=== PATIENT | female | born 1950 | race Caucasian/White ===

== ENCOUNTER 2020-04-09 07:57 | Emergency (ER) | payer MEDICARE, OTHER ==
[~2020-04-09] VITALS: Ht 172.7 cm; Wt 81.7 kg
--- OUTSIDE RECORDS SUMMARY | ~2020-04-09 | XMS | Encounter Summary ---
Demographics + + + | Address | [address] | | | [place] [address] | + + + | Home Phone | | + + + | Preferred Language | Unknown | + + + | Marital Status | | + + + | Scientologist Affiliation | Unknown | + + + | Race | White | + + + | Ethnic Group | Not or | + + + Author + + + | Author | [facility] | + + + | Organization | [facility] | + + + | Address | Unknown | + + + | Phone | Unavailable | + + + Support + + +---------+ + | Name | Relationship | Address | Phone | + + +---------+ + | Joe Rhodes | ECON | Unknown | | + + +---------+ + Care Team Providers + +------+ + | Care Lead Tank Mechanic Name | Role | Phone | + +------+ + PCP | Unavailable | + +------+ + Encounter Details +--------+ + + + + | Date | Type | Department | Care Team | Description | +--------+ + + + + | 09/15/ | Office | [facility] | Note, Dermatology | Progress Note | | 2005 | Visit-Trans | | Clinic | | | | cribed | | | | +--------+ + + + + Social History + +-------+ +--------+------+ | Tobacco [...] recent travel history available. | + + documented as of this encounter Progress Notes Interface, Surface Mount Technology Operator In - 04/04/2005 1:10 AM [facility] [id number] 09/15/2004 09/15/2004 [id number] RIGO ROSARIO DATE OF SERVICE: 09/15/2004 SURGEON: Fausto Chang M.D. VAN LOADER: Franck Ward M.D. RESIDENT: Pratik Parnell M.D. INDICATIONS: The patient was left with a 1.5 x 1.2 cm defect involving the left nose sidewall following Mohs surgery for removal of a primary basal cell carcinoma. Various closure modalities were discussed with the patient, and it was decided that an advancement flap would best preserve normal anatomical and functional relationships. After a discussion of the risks of bleeding, scarring, infection, and wound dehiscense, written and verbal consent was obtained, and the patient underwent the procedure as follows. PROCEDURE: The patient was taken to the operative suite and placed supine on the operating room table. The area was anesthetized with 1% lidocaine with epinephrine. The area was washed with Hibiclens, rinsed with saline, and draped with sterile towels. An advancement flap was designed with incisions made superiorly and laterally. The flap was widely undermined, and hemostasis was obtained with spot electrodessication. The flap was advanced to close the primary defect and sutured using fascia and 5-0 polysorb sutures. The secondary defect was modified by tissue rearrangement removing Isidro's triangles. Once aligned, the dermis was carefully closed using 5-0 polysorb dermal sutures. The epidermis was carefully approximated throughout the length of the wound with 5-0 novafil and fast absorbing gut sutures. The final wound length was 3.0 x 2.0cm. A sterile pressure dressing was applied, and wound care instructions were given. FINAL DIAGNOSIS: Primary basal cell carcinoma of the left nose sidewall. FINAL PROCEDURE: Advancement flap. COMPLICATIONS: None. ___ _ Costa Wise M.D. Professor and Chair, Dermatology Fellow, Dermatology Pratik Parnell M.D. Resident, Dermatology Pursuant to federal Medicare billing regulations, I certify that I was present, at a minimum, during the hale components of the procedure: identify type of reconstruction, area of primary and secondary tissue movement, design of flap, location of hale stitch, and review of final result. SIMON/flor A documented i n this encounter Plan of Treatment Not on filedocumented as of this encounter Visit Diagnoses Not on filedocumented in this encounter"
--- OUTSIDE RECORDS SUMMARY | ~2020-04-09 | XMS | Encounter Summary ---
Demographics + + + | Address | [address] | | | [place] [address] | + + + | Home Phone | | + + + | Preferred Language | Unknown | + + + | Marital Status | | + + + | Samaritan Affiliation | Unknown | + + + | Race | White | + + + | Ethnic Group | Not or | + + + Author + + + | Author | [facility] | + + + | Organization | [facility] | + + + | Address | Unknown | + + + | Phone | Unavailable | + + + Support + + +---------+ + | Name | Relationship | Address | Phone | + + +---------+ + | Joe Rhodes | ECON | Unknown | | + + +---------+ + Care Team Providers + +------+ + | Care Gun Repair Clerk Name | Role | Phone | + [...] as of this encounter Progress Notes Interface, Hand Candle Molder In - 05/27/2005 5:06 AM PDT [id number] 09/15/2004 09/15/2004 [id number] RIGO ROSARIO DATE OF SERVICE: 09/15/2004 SURGEON: Fausto Chang M.D. CLIENT DEVELOPMENT DIRECTOR: Franck Ward M.D. RESIDENT: Pratik Parnell M.D. [...]
--- OUTSIDE RECORDS SUMMARY | ~2020-04-09 | XMS | Encounter Summary ---
Demographics + + + | Address | [address] | | | [place] [address] | + + + | Home Phone | | + + + | Preferred Language | Unknown | + + + | Marital Status | | + + + | Hinduism Affiliation | Unknown | + + + | Race | White | + + + | Ethnic Group | Not or | + + + Author + + + | Author | [facility] | + + + | Organization | [facility] | + + + | Address | Unknown | + + + | Phone | Unavailable | + + + Support + + +---------+ + | Name | Relationship | Address | Phone | + + +---------+ + | Joe Rhodes | ECON | Unknown | | + + +---------+ + Care Team Providers + +------+ + | Care Post Hole Digging Machine Operator Name | Role | Phone | + [...] as of this encounter Progress Notes Interface, Anesthesiology Fellow In - 05/27/2005 5:06 AM PDT [id number] 09/15/2004 09/15/2004 [id number] RIGO ROSARIO DATE OF SERVICE: 09/15/2004 SURGEON: Fausto Chang M.D. POLYSTYRENE BEAD MOLDER: Franck Ward M.D. RESIDENT: Pratik Parnell M.D. ASSESSMENT: Taken and Recorded INDICATIONS: Patient presents with primary basal cell carcinoma of the left nose sidewall, pretreatment lesion size .8 x .8 cm. Because of the size, site, aggressive pathology, poorly defined borders, and diagnosis of the lesion, it is felt that it is best treated with Mohs micrographic surgery. Alternative surgical and nonsurgical therapies were discussed with the patient prior to obtaining written and verbal consent for Mohs surgery after explanation of risks of bleeding, infection, scarring, nerve damage and recurrence STAGE 1: The patient was placed supine on the operating room table. The wound was defined and infiltrated with lidocaine with epinephrine. The area was then debulked. Initial excisions were made around the clinical and debulk markings and hemostasis was obtained by electrodessication. A dressing was placed. Tissue was divided into 2 specimens, which were mapped, color-coded at their margins, and frozen sectioning was performed. Microscopic tumor was found persisting in 1 of the specimens. The histology showed a large atypical basaloid pleomorphic cells extending into the papillary and reticular dermis. STAGE II: The patient was returned to the operative suite. The area of positivity was delineated, infiltrated with lidocaine with epinephrine, and excised. Tissue was divided into 1 specimens, which were again marked, color-coded, and frozen sectioning was performed. Hemostasis was obtained in the usual manner, and a dressing placed. Microscopic tumors were found persisting in none of the specimens. With the lesion clear of microscopic tumor, surgery was considered complete. Following surgery, the defect measures as follows: 1.5 x 1.2 cm. FINAL DIAGNOSIS: Primary basal cell carcinoma of the left nose sidewall. CONDITION AT TERMINATION OF THERAPY: Carcinoma removed. COMMENTS: Advancement flap closure. ___ _ Fausto Chang M.D. Franck Ward M.D. Professor and Chair, Dermatology Fellow, Dermatology Pratik Parnell M.D. Resident, Dermatology Pursuant to federal Medicare billing regulations, I certify that I was present, at a minimum, during the hale components of the procedure: identify location/lesion and method of destruction. Identify the appropriate margin, respect for anatomy and reading, and prepared histologic session. SIMON/flor A Electronically signed by Fausto Chang 05-26-2005 02:45:28 PM documented i n this encounter Plan of Treatment Not on filedocumented as of this encounter Visit Diagnoses Not on filedocumented in this encounter"
--- OUTSIDE RECORDS SUMMARY | ~2020-04-09 | XMS | Encounter Summary ---
Demographics + + + | Address | [address] | | | [place] [address] | + + + | Home Phone | | + + + | Preferred Language | Unknown | + + + | Marital Status | | + + + | Buddhism Affiliation | 1077 | + + + | Race | Unknown | + + + | Ethnic Group | Unknown | + + + Author + + + | Author | [facility] | | | and [place] | + + + | Organization | [facility] | | | and [place] | + + + | Address | Unknown | + + + | Phone | Unavailable | + + + Support + + +---------+ + | Name | Relationship | Address | Phone | + + +---------+ + | Joe Rhodes | ECON | Unknown | | + + +---------+ + Care Team Providers + +------+ + | Care Business Development Engineer Name | Role | Phone | + +------+ + PCP | Unavailable | + +------+ + Encounter Details +--------+ + + + + | Date | Type | Department | Care Team | Description | +--------+ + + + + | 11/14/ | Hospital | [facility] | | | | 2011 | Encounter | [facility] | | | | | | CLINICAL LABORATORY | | | | | | [address] | | | | | | [place], [place] | | | | | | [address] | | | | | | [phone] | | | +--------+ + + + [...] on file | | + + + documented as of this encounter Plan of Treatment Not on filedocumented as of this encounter Procedures + +--------+ + + + | Procedure Name | Priori | Date/Time | Associated Diagnosis | Comments | | | ty | | | | + +--------+ + + + | TISSUE REQUEST FOR | Routin | 11/16/2011 | | Results for this | | PATHOLOGY (NON-ORD) | e | 2:04 PM | | procedure are in the | | | | PDT | | results section. | + +--------+ + + + documented in this encounter Results Tissue Request For Pathology (11/16/2011 2:04 PM PDT) + + | Specimen | + + | | + + + + + | Narrative | Performed At | + + + | CASE: [id number] PATIENT: MARLENE RHODES Surgical Pathology Report | EXTERNAL LAB | | PATHOLOGIC DIAGNOSIS: SKIN, LEFT INDEX FINGER: - | | | VERRUCA VULGARIS. - NEGATIVE FOR CARCINOMA. BES:kmk:[id number] | | | CLINICAL HISTORY: 11/15/2011. Mass - left index finger. | | | GROSS DESCRIPTION: The specimen is received in formalin labeled | | | "Marlene Rhodes" and designated "Mass - left index finger" consists of | | | a 0.9 x 0.8 x 0.6 cm unoriented skin excision. The skin surface is | | | white-otero and slightly roughened. The specimen is inked, trisected | | | and entirely submitted in cassette A1. [facility] | | | EXAMINATION: Histologic sections of all submitted blocks are | | | examined by light microscopy. These findings, together with the gross | | | examination, support the pathologic diagnosis. Rogers Medrano | | | Kelly MCDUFFIE Electronically signed Nov 16, 2011 2:04:06PM | | + + + + +---------+ + + | Performing | Address | City/State/Zipcode | Phone Number | | Organization | | | | + +---------+ + + | EXTERNAL LAB | | | | + +---------+ + + documented in this encounter Visit Diagnoses Not on filedocumented in this encounter
--- OUTSIDE RECORDS SUMMARY | ~2020-04-09 | XMS | Encounter Summary ---
Demographics + + + | Address | [address] | | | [place] [address] | + + + | Home Phone | | + + + | Preferred Language | Unknown | + + + | Marital Status | | + + + | Lutheran Affiliation | 1077 | + + + | Race | Unknown | + + + | Ethnic Group | Unknown | + + + Author + + + | Author | [facility] | | | and [place] | + + + | Organization | [facility] | | | and [...] Team Providers + +------+ + | Care Pastry Cook Helper Name | Role | Phone | + +------+ + PCP | Unavailable | + +------+ + Encounter Details +--------+ + + + + | Date | Type | Department | Care Team | Description | +--------+ + + + + | 08/22/ | Hospital | [facility] | Frederick Haskins, | | | 1999 - | Encounter | [facility] | MD [address] | | | | | [facility] [address] | | | 08/24/ | | [place], | [place] [address] | | | 1998 | | [place] [address] | [phone] | | | | | [phone] | | | +--------+ + + + [...]
--- OUTSIDE RECORDS SUMMARY | ~2020-04-09 | XMS | Clinical Summary ---
Demographics + + + | Address | [address] | | | [place] [address] | + + + | Home Phone | | + + + | Preferred Language | Unknown | + + + | Marital Status | | + + + | Episcopal Affiliation | Unknown | + + + [...] Team Providers + +------+ + | Care Oxygen Furnace Operator Name | Role | Phone | + +------+ + PCP | Unavailable | + +------+ + Source Comments ROMI is fully live on both EpicCare Ambulatory and EpicCare InPatient.[facility] Allergies Not on File Medications Not [...]
--- OUTSIDE RECORDS SUMMARY | ~2020-04-09 | XMS | Encounter Summary ---
Demographics + + + | Address | [address] | | | [place] [address] | + + + | Home Phone | | + + + | Preferred Language | Unknown | + + + | Marital Status | | + + + | Mu-Ism Affiliation | Unknown | + + + | Race | White | + + + | Ethnic Group | Not or | + + + Author + + + | Author | [facility] | + + + | Organization | [facility] | + + + | Address | Unknown | + + + | Phone | Unavailable | + + + Support + + +---------+ + | Name | Relationship | Address | Phone | + + +---------+ + | Joe Rhodes | ECON | Unknown | | + + +---------+ + Care Team Providers + +------+ + | Care Nurse Practitioner Home Assessments Name | Role | Phone | + [...] as of this encounter Progress Notes Interface, Gore Maker In - 05/27/2005 5:06 AM PDT [id number] 09/15/2004 09/15/2004 [id number] RIGO ROSARIO DATE OF SERVICE: 09/15/2004 SURGEON: Fausto Chang M.D. HIDE DROPPER: Franck Ward M.D. RESIDENT: Pratik Parnell M.D. [...]
--- OUTSIDE RECORDS SUMMARY | ~2020-04-09 | XMS | Encounter Summary ---
Demographics + + + | Address | [address] | | | [place] [address] | + + + | Home Phone | | + + + | Preferred Language | Unknown | + + + | Marital Status | | + + + | Gnosticism Affiliation | Unknown | + + + [...] Team Providers + +------+ + | Care Electro Tech Name | Role | Phone | + +------+ + PCP | Unavailable | + +------+ + Encounter Details +--------+ + + + + | Date | Type | Department | Care Team | Description | +--------+ + + + + | 09/01/ | Results | Surgical | Fausto Chang MD | | | 2003 | Only | Dermatology [address] | [address] | | | | | [address] | [address] | | | | | Mailcode:OP06 | [place] [address] | | | | | Outpatient Clinic | [phone] | | | | | [facility], Room [address] | | | | | | [place], [place] | | | | | | [address] | | | | | | [phone] | | | +--------+ + + + [...] [facility], | | | | | | [facility] | | | | | | Clinic [address] | | | | | | [place], [address] | | | | | | [place] | | | | | | [address] | | | | | | 09/03/04Rendering | | | | | | Diagnostician: Clyde | | | | | | Fer [...] + | [facility] | Mailcode CH[address] | [place] [address] | | | DERMATOPATHOLOGY | [address] | | | + + + + + documented in this encounter Visit Diagnoses Not on filedocumented in this encounter"
--- OUTSIDE RECORDS SUMMARY | ~2020-04-09 | XMS | Encounter Summary ---
Demographics + + + | Address | [address] | | | [place] [address] | + + + | Home Phone | | + + + | Preferred Language | Unknown | + + + | Marital Status | | + + + | Hoahaoism Affiliation | 1077 | + + + | Race | Unknown | + + + | Ethnic Group | Unknown | + + + Author + + + | Author | [facility] | | | and [place] | + + + | Organization | [facility] | | | and [place] [...] Team Providers + +------+ + | Care Dietary Service Aide Name | Role | Phone | + +------+ + PCP | Unavailable | + +------+ + Encounter Details +--------+ + + + + | Date | Type | Department | Care Team | Description | +--------+ + + + + | 11/03/ | Orders Only | [facility] | Conversion | | | 2018 | | CONVERSION DEP [address] | Transaction, | | | | | [address] | Provider Unknown | | | | | [place] | | | | | | [address] | (Fax) | | | | | [phone] | | | +--------+ + + + [...]
--- OUTSIDE RECORDS SUMMARY | ~2020-04-09 | XMS | Encounter Summary ---
Demographics + + + | Address | [address] | | | [place] [address] | + + + | Home Phone | | + + + | Preferred Language | Unknown | + + + | Marital Status | | + + + | Muslim Affiliation | Unknown | + + + | Race | White | + + + | Ethnic Group | Not or | + + + Author + + + | Author | [facility] | + + + | Organization | [facility] | + + + | Address | Unknown | + + + | Phone | Unavailable | + + + Support + + +---------+ + | Name | Relationship | Address | Phone | + + +---------+ + | Joe Rhodes | ECON | Unknown | | + + +---------+ + Care Team Providers + +------+ + | Care Air Commodore Name | Role | Phone | + +------+ + PCP | Unavailable | + +------+ + Encounter Details +--------+ + + + + | Date | Type | Department | Care Team | Description | +--------+ + + + + | 09/15/ | Ancillary | Registration 3181 | Fausto Chang MD | | | 2004 | Registratio | [facility] | [address] | | | | [address] | [address] Mailcode: RPB07 | [facility] [address] | | | | | [place], [place] | [place] [address] | | | | | [address] | [phone] | | | | | [phone] | | | +--------+ + + + [...]
--- OUTSIDE RECORDS SUMMARY | ~2020-04-09 | XMS | Encounter Summary ---
Demographics + + + | Address | [address] | | | [place] [address] | + + + | Home Phone | | + + + | Preferred Language | Unknown | + + + | Marital Status | | + + + | Sikh Affiliation | Unknown | + + + | Race | White | + + + | Ethnic Group | Not or | + + + Author + + + | Author | [facility] | + + + | Organization | [facility] | + + + | Address | Unknown | + + + | Phone | Unavailable | + + + Support + + +---------+ + | Name | Relationship | Address | Phone | + + +---------+ + | Joe Rhodes | ECON | Unknown | | + + +---------+ + Care Team Providers + +------+ + | Care Flow Machine Operator Name | Role | Phone [...] as of this encounter Progress Notes Interface, Bicycle I Assembler In - 04/04/2005 1:10 AM PDT [id number] 09/15/2004 09/15/2004 [id number] RIGO ROSARIO DATE OF SERVICE: 09/15/2004 SURGEON: Fausto Chang M.D. STAFF RADIOLOGIST: Franck Ward M.D. RESIDENT: Pratik Parnell M.D. [...]
--- OUTSIDE RECORDS SUMMARY | ~2020-04-09 | XMS | Encounter Summary ---
Demographics + + + | Address | [address] | | | [place] [address] | + + + | Home Phone | | + + + | Preferred Language | Unknown | + + + | Marital Status | | + + + | Synagogue Affiliation | 1077 | + + + | Race | Unknown | + + + | Ethnic Group | Unknown | + + + Author + + + | Author | [facility] | | | and [place] | + + + | Organization | [facility] | | | and [place] | [...] Team Providers + +------+ + | Care Chimney Construction Supervisor Name | Role | Phone | + +------+ + PCP | Unavailable | + +------+ + Encounter Details +--------+ + + + + | Date | Type | Department | Care Team | Description | +--------+ + + + + | 08/12/ | Hospital | [facility] | | | | 1996 | Encounter | [facility] | | | | | | [address] | | | | | | [place] | | | | | | [address] | | | | | | [phone] | | | +--------+ + + + [...]
--- OUTSIDE RECORDS SUMMARY | ~2020-04-09 | XMS | Clinical Summary ---
Demographics + + + | Address | [address] | | | [place] [address] | + + + | Home Phone | | + + + | Preferred Language | Unknown | + + + | Marital Status | | + + + | Holiness Affiliation | Unknown | + + + [...] Team Providers + +------+ + | Care Biomass Power Plant Superintendent Name | Role | Phone | + +------+ + PCP | Unavailable | + +------+ + Source Comments ROMI is fully live on both EpicCare Ambulatory and EpicCare InPatient.[facility] Allergies Not on File Medications Not [...]
--- OUTSIDE RECORDS SUMMARY | ~2020-04-09 | XMS | Encounter Summary ---
Demographics + + + | Address | [address] | | | [place] [address] | + + + | Home Phone [...] + + + | Author | [facility] | + + + | Organization | [facility] | + + + | Address | Unknown | + + + | Phone | Unavailable | + + + Support + + +---------+ + | Name | Relationship | Address | Phone | + + +---------+ + | Joe Rhodes | ECON | Unknown | | + + +---------+ + Care Team Providers + +------+ + | Care Chief Warden Name | Role | Phone | + [...] as of this encounter Progress Notes Interface, Pig Machine Operator In - 05/27/2005 5:06 AM PDT [id number] 09/15/2004 09/15/2004 [id number] RIGO ROSARIO DATE OF SERVICE: 09/15/2004 SURGEON: Fausto Chang M.D. CDL BULK DRIVER: Franck Ward M.D. RESIDENT: Pratik Parnell M.D. [...] M.D. Professor and Chair, Dermatology Fellow, Dermatology Partik Parnell M.D. Resident, Dermatology Pursuant to federal [...]
--- OUTSIDE RECORDS SUMMARY | ~2020-04-09 | XMS | Encounter Summary ---
Demographics + + + | Address | [address] | | | [place] [address] | + + + | Home Phone | | + + + | Preferred Language | Unknown | + + + | Marital Status | | + + + | Religion Affiliation | Unknown | + + + | Race | White | + + + | Ethnic Group | Not or | + + + Author + + + | Author | [facility] | + + + | Organization | [facility] | + + + | Address | Unknown | + + + | Phone | Unavailable | + + + Support + + +---------+ + | Name | Relationship | Address | Phone | + + +---------+ + | Joe Rhodes | ECON | Unknown | | + + +---------+ + Care Team Providers + +------+ + | Care Retrieval Specialist Name | Role | Phone | + [...] as of this encounter Progress Notes Interface, Communications Equipment Operator In - 04/04/2005 1:10 AM [facility] [id number] 09/15/2004 09/15/2004 [id number] RIGO ROSARIO DATE OF SERVICE: 09/15/2004 SURGEON: Fausto Chang M.D. MANAGER EMERGENCY: Franck Ward M.D. RESIDENT: Pratik Parnell M.D. [...]
--- OUTSIDE RECORDS SUMMARY | ~2020-04-09 | XMS | Encounter Summary ---
Demographics + + + | Address | [address] | | | [place] [address] | + + + | Home Phone | | + + + | Preferred Language | Unknown | + + + | Marital Status | | + + + | Pentecostalism Affiliation | Unknown | + + + | Race | White | + + + | Ethnic Group | Not or | + + + Author + + + | Author | [facility] | + + + | Organization | [facility] | + + + | Address | Unknown | + + + | Phone | Unavailable | + + + Support + + +---------+ + | Name | Relationship | Address | Phone | + + +---------+ + | Joe Rhodes | ECON | Unknown | | + + +---------+ + Care Team Providers + +------+ + | Care Founder & Ceo Name | Role | Phone | + [...] as of this encounter Progress Notes Interface, Senior Coldfusion Developer In - 04/04/2005 1:10 AM PDT [id number] 09/15/2004 09/15/2004 [id number] RIGO ROSARIO DATE OF SERVICE: 09/15/2004 SURGEON: Fausto Chang M.D. SAP DIRECTOR: Franck Ward M.D. RESIDENT: Pratik Parnell [...]
--- OUTSIDE RECORDS SUMMARY | ~2020-04-09 | XMS | Clinical Summary ---
Demographics + + + | Address | [address] | | | [place] [address] | + + + | Home Phone | | + + + | Preferred Language | Unknown | + + + | Marital Status | | + + + | Restorationism Affiliation | 1077 | + + + | Race | Unknown | + + + | Ethnic Group | Unknown | + + + Author + + + | Author | [facility] | | | and [place] | + + + | Organization | [facility] | | | and [...] Team Providers + +------+ + | Care Engraver Hand Hard Metals Name | Role | Phone | + [...]
--- OUTSIDE RECORDS SUMMARY | ~2020-04-09 | XMS | Encounter Summary ---
Demographics + + + | Address | [address] | | | [place] [address] | + + + | Home Phone | | + + + | Preferred Language | Unknown | + + + | Marital Status | | + + + | Druze Affiliation | 1077 | + + + | Race | Unknown | + + + | Ethnic Group | Unknown | + + + Author + + + | Author | [facility] | | | and [place] | + + + | Organization | [facility] | | | and [place] [...] Team Providers + +------+ + | Care Straddle Carrier Operator Name | Role | Phone | [...] | | | | [address] | [place] [address] | | | | | [place], [place] | [phone] | | | | | [address] | | | | | | [phone] | | | +--------+ + + + [...]
--- OUTSIDE RECORDS SUMMARY | ~2020-04-09 | XMS | Encounter Summary ---
Demographics + + + | Address | [address] | | | [place] [address] | + + + | Home Phone | | + + + | Preferred Language | Unknown | + + + | Marital Status | | + + + | Rastafarian Affiliation | Unknown | + + + [...] Team Providers + +------+ + | Care Architect Internship Name | Role | Phone | + +------+ + PCP | Unavailable | + +------+ + Encounter Details +--------+ + + + + | Date | Type | Department | Care Team | Description | +--------+ + + + + | 09/15/ | Ancillary | Registration [id number] | Fausto Chang MD | | | 2004 | Registratio | [facility] | [address] | | | | [address] | [address] Mailcode: RPB07 | [facility] [address] | | | | | [place], [place] | [place] [address] | | | | | [address] | [phone] | | | | | [phone] | | | +--------+ + + + [...]
--- OUTSIDE RECORDS SUMMARY | ~2020-04-09 | XMS | Encounter Summary ---
Demographics + + + | Address | [address] | | | [place] [address] | + + + | Home Phone | | + + + | Preferred Language | Unknown | + + + | Marital Status | | + + + | Christianity Affiliation | Unknown | + + + [...] Team Providers + +------+ + | Care Engine Setter Name | Role | Phone | + +------+ + PCP | Unavailable | + +------+ + Encounter Details +--------+ + + + + | Date | Type | Department | Care Team | Description | +--------+ + + + + | 09/01/ | Results | Surgical | Fausto Chang MD | | | 2003 | Only | Dermatology [address] | [address] [facility] | | | | | [address] | [address] | | | | | Mailcode:OP06 | [place] [address] | | | | | Outpatient Clinic | [phone] | | | | | [facility], Room [address] | | | | | | [place], [place] | | | | | | [address] | | | | | | [phone] | | | +--------+ + + + [...] | | | | | | [facility] | | | | | | Clinic [address] | | | | | | [place], [address] | | | | | | [place] | | | | | | [address] | | | | | | 09/03/04Rendering [...] [facility] | Mailcode [address] | [place] [address] | | | DERMATOPATHOLOGY | [address] | | | + + + + + documented in this encounter Visit Diagnoses Not on filedocumented in this encounter"
--- OUTSIDE RECORDS SUMMARY | ~2020-04-09 | XMS | Encounter Summary ---
Demographics + + + | Address | [address] | | | [place] [address] | + + + | Home Phone | | + + + | Preferred Language | Unknown | + + + | Marital Status | | + + + | Jehovah'S Witness Affiliation | Unknown | + + + | Race | White | + + + | Ethnic Group | Not or | + + + Author + + + | Author | [facility] | + + + | Organization | [facility] | + + + | Address | Unknown | + + + | Phone | Unavailable | + + + Support + + +---------+ + | Name | Relationship | Address | Phone | + + +---------+ + | Joe Rhodes | ECON | Unknown | | + + +---------+ + Care Team Providers + +------+ + | Care Spinning And Winding Supervisor Name | Role | Phone | [...] as of this encounter Progress Notes Interface, Astrobiologist In - 04/04/2005 1:10 AM PDT [id number] 08/26/2004 [id number] RIGO ROSARIO September 15, 2004 Karl Rojas M.D. [address] [place] [id number] Re: Jeannine Rhodes 01-89-53-[address] Rojas, [...]
--- OUTSIDE RECORDS SUMMARY | ~2020-04-09 | XMS | Encounter Summary ---
Demographics + + + | Address | [address] | | | [place] [address] | + + + | Home Phone | | + + + | Preferred Language | Unknown | + + + | Marital Status | | + + + | Confucianism Affiliation | Unknown | + + + | Race | White | + + + | Ethnic Group | Not or | + + + Author + + + | Author | [facility] | + + + | Organization | [facility] | + + + | Address | Unknown | + + + | Phone | Unavailable | + + + Support + + +---------+ + | Name | Relationship | Address | Phone | + + +---------+ + | Joe Rhodes | ECON | Unknown | | + + +---------+ + Care Team Providers + +------+ + | Care Aircraft Maintenance Director Name | Role | Phone | [...] as of this encounter Progress Notes Interface, Office Bookkeeper In - 04/04/2005 1:10 AM PDT [id number] 08/26/2004 [id number] RIGO ROSARIO September 15, 2004 Karl Rojas M.D. [address] [place] [id number] Re: Jeannine Rhodes 01-89-53-[address] Rojas, [...]
--- OUTSIDE RECORDS SUMMARY | ~2020-04-09 | XMS | Encounter Summary ---
Demographics + + + | Address | [address] | | | [place] [address] | + + + | Home Phone | | + + + | Preferred Language | Unknown | + + + | Marital Status | | + + + | Jehovah'S Witness Affiliation | 1077 | + + + | Race | Unknown | + + + | Ethnic Group | Unknown | + + + Author + + + | Author | [facility] | | | and [place] | + + + | Organization | [facility] | | | and [place] [...] Team Providers + +------+ + | Care Golf Club Manager Name | Role | Phone | + +------+ + PCP | Unavailable | + +------+ + Encounter Details +--------+ + + + + | Date | Type | Department | Care Team | Description | +--------+ + + + + | 11/27/ | Hospital | [facility] | | | | 1991 | Encounter | MED CTR GENERIC OP | | | | | | CONV DEPT [address] | | | | | | [place], | | | | | | [place] [address] | | | | | | [phone] | | | +--------+ + + + [...]
[2020-04-09] MEDS ORDERED: OZEMPIC1 MG/0.75 SUB-Q (08:16)
[2020-04-09] MEDS ORDERED: METFORMIN HCL1000 MG PO (08:16)
[2020-04-09] MEDS ORDERED: LEVOTHYROXINE137 MCG PO (08:16)
== END 2020-04-09 09:26 | disposition home or self-care (01) ==
LOC: ED 07:57
PROC: 0YQFXZZ Repair Right Knee Region, External Approach (ICD-10-PCS; principal; 2020-04-09)
DX: S81.011A Laceration without foreign body, right knee, initial encounter (principal); E10.9 Type 1 diabetes mellitus without complications; E03.9 Hypothyroidism, unspecified; Z23 Encounter for immunization; Z88.8 Allergy status to other drugs, medicaments and biological substances; Z79.899 Other long term (current) drug therapy; W01.0XXA Fall on same level from slipping, tripping and stumbling without subsequent striking against object, initial encounter
CPT/HCPCS: 12032; 90471; 90715; 99282-25

== ENCOUNTER 2020-04-23 10:52 | Emergency (ER) | payer MEDICARE, OTHER ==
[~2020-04-23] VITALS: Ht 172.7 cm; Wt 81.7 kg
--- OUTSIDE RECORDS SUMMARY | ~2020-04-23 | XMS | Clinical Summary ---
Demographics + + + | Address | [address] | | | [place] [address] | + + + | Home Phone | | + + + | Preferred Language | Unknown | + + + | Marital Status | | + + + | Synagogue Affiliation | Unknown | + + + | Race | White | + + + | Ethnic Group | Not or | + + + Author + + + | Organization | Unknown | + + + | Address | Unknown | + + + | Phone | Unavailable | + + + Support + + +---------+ + | Name | Relationship | Address | Phone | + + +---------+ + | Joe Rhodes | ECON | Unknown | | + + +---------+ + Care Team Providers + +------+ + | Care Pattern Marker Name | Role | Phone | + +------+ + PCP | Unavailable | + +------+ + Source Comments ROMI is fully live on both EpicCare Ambulatory and EpicCare InPatient.[facility] Allergies Not on File Medications Not on file Active Problems Not on file Social History + +-------+ +--------+------+ | Tobacco Use | Types | Packs/Day | Years | Date | | | | | Used | | + +-------+ +--------+------+ | Never Assessed | | | | | + +-------+ +--------+------+ + + + | Sex Assigned at | Date Recorded | | | | + + + | Not on file | | + + + + + + + | Job Start Date | Occupation | Industry | + + + + | Not on file | Not on file | Not on file | + + + + + + + + | Travel History | Travel Start | Travel End | + + + + + + | No recent travel history available. | + + Last Filed Vital Signs Not on file Plan of Treatment + + + + + | Health Maintenance | Due Date | Last Done | Comments | + + + + + | Pneumococcal | | | | | vaccination (1 of 2 | 6 | | | | - PCV13) | | | | + + + + + | Influenza (Flu) | | | | | vaccination (#1) | 9 | | | + + + + + Results Not on filefrom Last 3 Months"
--- OUTSIDE RECORDS SUMMARY | ~2020-04-23 | XMS | Encounter Summary ---
Demographics + + + | Address | [address] | | | [place] [address] | + + + | Home Phone | | + + + | Preferred Language | Unknown | + + + | Marital Status | | + + + | Taoist Affiliation | Unknown | + + + | Race | White | + + + | Ethnic Group | Not or | + + + Author + + + | Author | [facility] | + + + | Organization | [facility] | + + + | Address | Unknown | + + + | Phone | Unavailable | + + + Support + + +---------+ + | Name | Relationship | Address | Phone | + + +---------+ + | Joe Rhodes | ECON | Unknown | | + + +---------+ + Care Team Providers + +------+ + | Care Automotive Specialty Technician Name | Role | Phone | + [...] as of this encounter Progress Notes Interface, Inhalation Therapy Teacher In - 05/27/2005 5:06 AM PDT [id number] 09/15/2004 09/15/2004 [id number] RIGO ROSARIO DATE OF SERVICE: 09/15/2004 SURGEON: Fausto Chang M.D. OUTSIDE MACHINIST: Franck Ward M.D. RESIDENT: Pratik Parnell M.D. [...] PROCEDURE: Advancement flap. COMPLICATIONS: None. ___ _ Fausto Chang M.D. Franck Ward M.D. Professor and Chair, Dermatology Fellow, Dermatology Pratik Parnell M.D. Resident, Dermatology Pursuant to federal Medicare billing regulations, I certify that I was present, at a minimum, during the hale components of the procedure: identify type of reconstruction, area of primary and secondary tissue movement, design of flap, location of hale stitch, and review of final result. SIMON/flor A Electronically signed by Fausto Chang 05-26-2005 02:45:39 PM documented i n this encounter Plan of Treatment Not on filedocumented as of this encounter Visit Diagnoses Not on filedocumented in this encounter"
--- OUTSIDE RECORDS SUMMARY | ~2020-04-23 | XMS | Encounter Summary ---
Demographics + + + | Address | [address] | | | [place] [address] | + + + | Home Phone | | + + + | Preferred Language | Unknown | + + + | Marital Status | | + + + | Faith Affiliation | Unknown | + + + | Race | White | + + + | Ethnic Group | Not or | + + + Author + + + | Author | [facility] | + + + | Organization | [facility] | + + + | Address | Unknown | + + + | Phone | Unavailable | + + + Support + + +---------+ + | Name | Relationship | Address | Phone | + + +---------+ + | Joe Rhodes | ECON | Unknown | | + + +---------+ + Care Team Providers + +------+ + | Care Baggage Handler Name | Role | Phone | + [...] as of this encounter Progress Notes Interface, Tetryl Wringer Operator In - 05/27/2005 5:06 AM PDT [id number] 09/15/2004 09/15/2004 [id number] RIGO ROSARIO DATE OF SERVICE: 09/15/2004 SURGEON: Fausto Chang M.D. PROFESSOR OF VEGETABLE SCIENCE: Franck Ward M.D. RESIDENT: Pratik Parnell M.D. [...]
--- OUTSIDE RECORDS SUMMARY | ~2020-04-23 | XMS | Encounter Summary ---
Demographics + + + | Address | [address] | | | [place] [address] | + + + | Home Phone | | + + + | Preferred Language | Unknown | + + + | Marital Status | | + + + | Congregational Affiliation | Unknown | + + + | Race | White | + + + | Ethnic Group | Not or | + + + Author + + + | Author | [facility] | + + + | Organization | [facility] | + + + | Address | Unknown | + + + | Phone | Unavailable | + + + Support + + +---------+ + | Name | Relationship | Address | Phone | + + +---------+ + | Joe Rhodes | ECON | Unknown | | + + +---------+ + Care Team Providers + +------+ + | Care College Basketball Coach Name | Role | Phone | + [...] as of this encounter Progress Notes Interface, Filter Cleaner In - 04/04/2005 1:10 AM PDT [id number] 09/15/2004 09/15/2004 [id number] RIGO ROSARIO DATE OF SERVICE: 09/15/2004 SURGEON: Fausto Chang M.D. DROP WIRE OPERATOR: Franck Ward M.D. RESIDENT: Pratik Parnell M.D. [...] anatomy and reading, and prepared histologic session. Libby A documented i n this encounter Plan of Treatment Not on filedocumented as of this encounter Visit Diagnoses Not on filedocumented in this encounter"
--- OUTSIDE RECORDS SUMMARY | ~2020-04-23 | XMS | Encounter Summary ---
Demographics + + + | Address | [address] | | | [place] [address] | + + + | Home Phone | | + + + | Preferred Language | Unknown | + + + | Marital Status | | + + + | Orthodox Affiliation | Unknown | + + + | Race | White | + + + | Ethnic Group | Not or | + + + Author + + + | Author | [facility] | + + + | Organization | [facility] | + + + | Address | Unknown | + + + | Phone | Unavailable | + + + Support + + +---------+ + | Name | Relationship | Address | Phone | + + +---------+ + | Joe Rhodes | ECON | Unknown | | + + +---------+ + Care Team Providers + +------+ + | Care Wood Club Neck Whipper Name | Role | Phone | + +------+ + PCP | Unavailable | + +------+ + Encounter Details +--------+ + + + + | Date | Type | Department | Care Team | Description | +--------+ + + + + | 09/01/ | Results | Surgical | Fausto Chang MD | | | 2003 | Only | Dermatology [address] | [address] [facility] | | | | | [address] | [address] | | | | | Mailcode:OP06 | [place] [address] | | | | | Outpatient Clinic | [phone] | | | | | [facility] [address], [address] | | | | | | [place], [place] | | | | | | [address] | | | | | | [phone] | | | +--------+ + + + [...] | + +--------+ + + + | DERMATOPATHOLOGY(CON | Routin | 09/01/2004 | | Results for this | | SULT) | e | | | procedure are in the | | | | | | results section. | + +--------+ + + + documented in this encounter Results DERMATOPATHOLOGY(CONSULT) (09/01/2004) + + + + + + | Component | Value | Ref Range | Performed | Pathologist | | | | | At | Signature | + + + + + + | DERMATOPATH | SOURCE OF SPECIMEN:A | | | | | (CONSULT) | CONSULTATION CLINICAL | | | | | | DESCRIPTION:3mm punch, | | | | | | Lt. side nose; pearly | | | | | | papule; BCC Dear Fausto: | | | | | | I agree with | | | | | | Bob regarding Jeannine | | | | | | Rhodes's left nosebiopsy | | | | | | where there are | | | | | | aggregates of cells with | | | | | | hyperchromatic | | | | | | nuclei,scant cytoplasm | | | | | | and palisading of the | | | | | | peripheral nuclei. | | | | | | DIAGNOSIS:A (B): BASAL | | | | | | CELL CARCINOMA The | | | | | | basal cell carcinoma | | | | | | extends closely to the | | | | | | surgical margins. Thank | | | | | | you for referring this | | | | | | consultation.1 slide | | | | | | [id number] returned to | | | | | | Dr. Chang. CRW:mm cc: | | | | | | Karl Rojas, | | | | | | [facility] | | | | | | Clinic [address] | | | | | | [place], [address] | | | | | | [place] | | | | | | [address] | | | | | | 09/03/04Rendering | | | | | | Diagnostician: lCyde | | | | | | Fer Elkins Jr., | | | | | | CostaPathologistElectroni | | | | | | kolby Signed | | | | | | 09/06/2004Comment: | | | | | | SOURCE OF SPECIMEN: | | | | | | CONSULTATION | | | | + + + + + + + + | Specimen | + + | | + + + + + + + | Performing | Address | City/State/Zipcode | Phone Number | | Organization | | | | + + + + + | [facility] | [address]code [address] | [place] [address] | | | DERMATOPATHOLOGY | [address] | | | + + + + + documented in this encounter Visit Diagnoses Not on filedocumented in this encounter"
--- OUTSIDE RECORDS SUMMARY | ~2020-04-23 | XMS | Encounter Summary ---
Demographics + + + | Address | [address] | | | [place] [address] | + + + | Home Phone | | + + + | Preferred Language | Unknown | + + + | Marital Status | | + + + | Adventist Affiliation | 1077 | + + + | Race | Unknown | + + + | Ethnic Group | Unknown | + + + Author + + + | Author | [facility] | | | and [place] | + + + | Organization | [facility] | | | and [place] | [...] Team Providers + +------+ + | Care Section Hand Name | Role | Phone | + +------+ + PCP | Unavailable | + +------+ + Encounter Details +--------+ + + + + | Date | Type | Department | Care Team | Description | +--------+ + + + + | 11/03/ | Orders Only | [facility] | Daniel Tang T, | | | 2017 | | [address] | [address] | | | | | [address] [address] | [place] [address] | | | | | [place], [place] | [phone] | | | | | [address] | | | | | | [phone] | | | +--------+ + + + + Social History + +-------+ +--------+------+ | Tobacco Use | Types | Packs/Day | Years | Date | | | | | Used | | + +-------+ +--------+------+ | Never Smoker | | | | | + +-------+ [...] | + +--------+ + + + | XR KNEE BILATERAL AP | Routin | 11/03/2017 | | Results for this | | STANDING | e | 1:45 PM | | procedure are in the | | | | PST | | results section. | + +--------+ + + + documented in this encounter Results XR Knee Bilateral AP Standing (11/03/2017 1:45 PM PST) + + | Specimen | + + | | + + + + + | Narrative | Performed At | + + + | Impression: Single view of bilateral knees while standing shows mild | | | medial compartment narrowing of the right knee of 30 percent. | | | Without significant marginal osteophytes or other bony abnormality. | | | Right knee is largely symmetric with the left. | | + + + + + | Procedure Note | + + | Izaiah Casillas Conversion - 04/26/2019 4:03 PM PDT Impression: Single view of bilateral | | knees while standing shows mildmedial compartment narrowing of the right knee of 30 | | percent. Withoutsignificant marginal osteophytes or other bony abnormality. Right knee | | islargely symmetric with the left. | + + documented in this encounter Visit Diagnoses Not on filedocumented in this encounter"
--- OUTSIDE RECORDS SUMMARY | ~2020-04-23 | XMS | Encounter Summary ---
Demographics + + + | Address | [address] | | | [place] [address] | + + + | Home Phone | | + + + | Preferred Language | Unknown | + + + | Marital Status | | + + + | Latter Day Affiliation | Unknown | + + + [...] Team Providers + +------+ + | Care Reading Instructor Name | Role | Phone | + [...] as of this encounter Progress Notes Interface, J2Ee Application Developer In - 05/27/2005 5:06 AM PDT [id number] 09/15/2004 09/15/2004 [id number] RIGO ROSARIO DATE OF SERVICE: 09/15/2004 SURGEON: Fausto Chang M.D. PRINT BINDING AND FINISHING WORKER: Franck Ward M.D. RESIDENT: Pratik Parnell M.D. [...]
--- OUTSIDE RECORDS SUMMARY | ~2020-04-23 | XMS | Clinical Summary ---
Demographics + + + | Address | [address] | | | [place] [address] | + + + | Home Phone | | + + + | Preferred Language | Unknown | + + + | Marital Status | | + + + | Rastafari Affiliation | 1077 | + + + | Race | Unknown | + + + | Ethnic Group | Unknown | + + + Author + + + | Author | [facility] | | | and [place] | + + + | Organization | [facility] | | | and [place] [...] Team Providers + +------+ + | Care Clerical Assistant Name | Role | Phone | + +------+ + PCP | Unavailable | + +------+ + Allergies No Known Allergies Medications + + + +---------+------+------+-------+ | Medication | Sig | Dispensed | Refills | Star | End | Statu | | | | | | t | Date | s | | | | | | Date | | | + + + +---------+------+------+-------+ | insulin aspart | 10 mLs by Other | | 0 | 03/0 | | Activ | | (NOVOLOG) 100 | route as needed for | | | 1/20 | | e | | units/mL injection | High Blood Sugar. | | | 18 | | | | | For drug pump refill | | | | | | + + + +---------+------+------+-------+ | levothyroxine | Take 137 mcg by | | 0 | 03/0 | | Activ | | (SYNTHROID) 137 MCG | mouth every morning | | | 1/20 | | e | | tablet | before breakfast. | | | 18 | | | + + + +---------+------+------+-------+ | FLUoxetine | Take 10 mg by mouth | | 0 | 03/0 | | Activ | | (PROZAC) 10 mg | daily. | | | 1/20 | | e | | capsule | | | | 18 | | | + + + +---------+------+------+-------+ | fish oil 1,000 mg | Take 1 g by mouth | | 0 | 03/0 | | Activ | | capsule | daily. | | | 1/20 | | e | | | | | | 18 | | | + + + +---------+------+------+-------+ | Multiple | Take 1 tablet by | | 0 | 03/0 | | Activ | | Vitamins-Minerals | mouth daily. | | | 1/20 | | e | | (MULTIVITAMIN WITH | | | | 18 | | | | MINERALS) tablet | | | | | | | + + + +---------+------+------+-------+ | metFORMIN | Take 1,000 mg by | | 0 | 03/0 | | Activ | | (GLUCOPHAGE) 1000 MG | mouth 2 (two) times | | | 1/20 | | e | | tablet | daily with meals. | | | 18 | | | + + + +---------+------+------+-------+ Active Problems Not on file Family History + + +------+ + | Medical History | Relation | Name | Comments | + + +------+ + | Diabetes, IDDM | Maternal | | | | | Grandfath | | | | | er | | | + + +------+ + | Cancer | Mother | | | + + +------+ + | Cancer | Sister | | | + + +------+ + + +------+--------+ + | Relation | Name | Status | Comments | + +------+--------+ + | Maternal Grandfather | | | | + +------+--------+ + | Maternal Grandfather | | | | + +------+--------+ + | Mother | | | | + +------+--------+ + | Mother | | | | + +------+--------+ + | Sister | | | | + +------+--------+ + | Sister | | | | + +------+--------+ + Social History + +-------+ +--------+------+ | [...] on file | | + + + Last Filed Vital Signs Not on file Plan of Treatment + + +-------+ + | Health Maintenance | Due Date | Last | Comments | | | | Done | | + + +-------+ + | Vaccine: | | | | | Dtap/Tdap/Td (1 - | 0 | | | | Tdap) | | | | + + +-------+ + | Vaccine: Zoster (1 | | | | | of 2) | 1 | | | + + +-------+ + | Breast Cancer | | | | | Screening | 6 | | | + + +-------+ + | Vaccine: | | | | | Pneumococcal 65+ (1 | 6 | | | | of 1 - PPSV23) | | | | + + +-------+ + | Vaccine: Influenza | | | | | (#1) | 0 | | | + + +-------+ + Results Not on filefrom Last 3 Months"
--- OUTSIDE RECORDS SUMMARY | ~2020-04-23 | XMS | Encounter Summary ---
Demographics + + + | Address | [address] | | | [place] [address] | + + + | Home Phone | | + + + | Preferred Language | Unknown | + + + | Marital Status | | + + + | Methodist Affiliation | 1077 | + + + | Race | Unknown | + + + | Ethnic Group | Unknown | + + + Author + + + | Author | [facility] | | | and [place] | + + + | Organization | [facility] | | | and [place] [...] Team Providers + +------+ + | Care Rod Pointer Name | Role | Phone | + +------+ + PCP | Unavailable | + +------+ + Encounter Details +--------+ + + + + | Date | Type | Department | Care Team | Description | +--------+ + + + + | 11/27/ | Hospital | [facility] | | | | 1991 | Encounter | MED CTR GENERIC OP | | | | | | CONV DEPT [address] | | | | | | [place], | | | | | | [place] [address] | | | | | | [phone] | | | +--------+ + + + [...]
--- OUTSIDE RECORDS SUMMARY | ~2020-04-23 | XMS | Clinical Summary ---
Demographics + + + | Address | [address] | | | [place] [address] | + + + | Home Phone | | + + + | Preferred Language | Unknown | + + + | Marital Status | | + + + | Rastafari Affiliation | Unknown | + + + [...] Team Providers + +------+ + | Care Electric Meter Technician Name | Role | Phone | + +------+ + PCP | Unavailable | + +------+ + Source Comments ROMI is fully live on both EpicCare Ambulatory and EpicCare InPatient.[facility] Allergies Not on File Medications Not on [...]
--- OUTSIDE RECORDS SUMMARY | ~2020-04-23 | XMS | Encounter Summary ---
Demographics + + + | Address | [address] | | | [place] [address] | + + + | Home Phone | | + + + | Preferred Language | Unknown | + + + | Marital Status | | + + + | Evangelical Affiliation | Unknown | + + + | Race | White | + + + | Ethnic Group | Not or | + + + Author + + + | Author | [facility] | + + + | Organization | [facility] | + + + | Address | Unknown | + + + | Phone | Unavailable | + + + Support + + +---------+ + | Name | Relationship | Address | Phone | + + +---------+ + | Joe Rhodes | ECON | Unknown | | + + +---------+ + Care Team Providers + +------+ + | Care Data Technician Name | Role | Phone | + +------+ + PCP | Unavailable | + +------+ + Encounter Details +--------+ + + + + | Date | Type | Department | Care Team | Description | +--------+ + + + + | 09/15/ | Ancillary | Registration [id number] | Fausto Chang MD | | | 2004 | Registratio | [facility] | [address] | | | | [address] | [address] Mailcode: [id number] | [facility] [address] | | | | | [place], [place] | [place] [address] | | | | | [address] | [phone] | | | | | [phone] | | | +--------+ + + + [...]
--- OUTSIDE RECORDS SUMMARY | ~2020-04-23 | XMS | Encounter Summary ---
Demographics + + + | Address | [address] | | | [place] [address] | + + + | Home Phone | | + + + | Preferred Language | Unknown | + + + | Marital Status | | + + + | Temple Affiliation | Unknown | + + + | Race | White | + + + | Ethnic Group | Not or | + + + Author + + + | Author | [facility] | + + + | Organization | [facility] | + + + | Address | Unknown | + + + | Phone | Unavailable | + + + Support + + +---------+ + | Name | Relationship | Address | Phone | + + +---------+ + | Joe Rhodes | ECON | Unknown | | + + +---------+ + Care Team Providers + +------+ + | Care Track Subway Repair Supervisor Name | Role | Phone | + +------+ + PCP | Unavailable | + +------+ + Encounter Details +--------+ + + + + | Date | Type | Department | Care Team | Description | +--------+ + + + + | 09/15/ | Ancillary | Registration [id number] | Fausto Chang MD | | | 2004 | Registratio | [facility] | [address] | | | | [address] | [address] Mailcode: RPB07 | [facility] [address] | | | | | [place], [place] | [place] [address] | | | | | [address] | [phone] | | | | | [phone] | | | +--------+ + + + [...]
--- OUTSIDE RECORDS SUMMARY | ~2020-04-23 | XMS | Encounter Summary ---
Demographics + + + | Address | [address] | | | [place] [address] | + + + | Home Phone | | + + + | Preferred Language | Unknown | + + + | Marital Status | | + + + | Judaism Affiliation | Unknown | + + + | Race | White | + + + | Ethnic Group | Not or | + + + Author + + + | Author | [facility] | + + + | Organization | [facility] | + + + | Address | Unknown | + + + | Phone | Unavailable | + + + Support + + +---------+ + | Name | Relationship | Address | Phone | + + +---------+ + | Joe Rhodes | ECON | Unknown | | + + +---------+ + Care Team Providers + +------+ + | Care Solar Applications Development Engineer Name | Role | Phone [...] as of this encounter Progress Notes Interface, Auto Damage Appraiser In - 04/04/2005 1:10 AM PDT [id number] 09/15/2004 09/15/2004 [id number] RIGO ROSARIO DATE OF SERVICE: 09/15/2004 SURGEON: Fausto Chang M.D. REGULATORY AFFAIRS COORDINATOR: Franck Ward M.D. RESIDENT: Pratik Parnell M.D. [...]
--- OUTSIDE RECORDS SUMMARY | ~2020-04-23 | XMS | Encounter Summary ---
Demographics + + + | Address | [address] | | | [place] [address] | + + + | Home Phone | | + + + | Preferred Language | Unknown | + + + | Marital Status | | + + + | Spiritism Affiliation | Unknown | + + + | Race | White | + + + | Ethnic Group | Not or | + + + Author + + + | Author | [facility] | + + + | Organization | [facility] | + + + | Address | Unknown | + + + | Phone | Unavailable | + + + Support + + +---------+ + | Name | Relationship | Address | Phone | + + +---------+ + | Joe Rhodes | ECON | Unknown | | + + +---------+ + Care Team Providers + +------+ + | Care Launch Leader Name | Role | Phone | + [...] as of this encounter Progress Notes Interface, Dimensional Inspector In - 04/04/2005 1:10 AM [facility] [id number] 09/15/2004 09/15/2004 [id number] RIGO ROSARIO DATE OF SERVICE: 09/15/2004 SURGEON: Fausto Chang M.D. CONCHE OPERATOR: Franck Ward M.D. RESIDENT: Pratik Parnell [...]
--- OUTSIDE RECORDS SUMMARY | ~2020-04-23 | XMS | Encounter Summary ---
Demographics + + + | Address | [address] | | | [place] [address] | + + + | Home Phone | | + + + | Preferred Language | Unknown | + + + | Marital Status | | + + + | Presybeterian Affiliation | Unknown | + + + | Race | White | + + + | Ethnic Group | Not or | + + + Author + + + | Author | [facility] | + + + | Organization | [facility] | + + + | Address | Unknown | + + + | Phone | Unavailable | + + + Support + + +---------+ + | Name | Relationship | Address | Phone | + + +---------+ + | Joe Rhodes | ECON | Unknown | | + + +---------+ + Care Team Providers + +------+ + | Care Program Director/Traffic Director Name | Role | Phone | + [...] as of this encounter Progress Notes Interface, Brisket Puller In - 04/04/2005 1:10 AM [facility] [id number] 09/15/2004 09/15/2004 [id number] RIGO ROSARIO DATE OF SERVICE: 09/15/2004 SURGEON: Fausto Chang M.D. METAL DEALER: Franck Ward M.D. RESIDENT: Pratik Parnell M.D. [...]
--- OUTSIDE RECORDS SUMMARY | ~2020-04-23 | XMS | Encounter Summary ---
Demographics + + + | Address | [address] | | | [place] [address] | + + + | Home Phone | | + + + | Preferred Language | Unknown | + + + | Marital Status | | + + + | Orthodox Affiliation | Unknown | + + + | Race | White | + + + | Ethnic Group | Not or | + + + Author + + + | Author | [facility] | + + + | Organization | [facility] | + + + | Address | Unknown | + + + | Phone | Unavailable | + + + Support + + +---------+ + | Name | Relationship | Address | Phone | + + +---------+ + | Joe Rhodes | ECON | Unknown | | + + +---------+ + Care Team Providers + +------+ + | Care Family Service Worker Name | Role | Phone | + +------+ + PCP | Unavailable | + +------+ + Encounter Details +--------+ + + + + | Date | Type | Department | Care Team | Description | +--------+ + + + + | 09/17/ | [facility] | Letter, | Letters | | 2004 | scribed | | Dermatology | | +--------+ + + + + [...] as of this encounter Progress Notes Interface, Laminator Hand In - 04/04/2005 1:10 AM PDT [id number] 08/26/2004 [id number] RIGO ROSARIO September 15, 2004 Karl Rojas M.D. [address] [place] [id number] Re: Jeannine Rhodes [id number] 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 The tumor has now been removed using Mohs micrographic surgery. The resultant defect was repaired using an advancement flap closure. Copies of our operative reports are enclosed for your records. They should be self-explanatory. The patient will be returning in one week for suture removal and surgical follow up. Sincerely, Fausto Chang M.D. Professor and Chair, Dermatology NS/flor A documented i n this encounter Plan of Treatment Not on filedocumented as of this encounter Visit Diagnoses Not on filedocumented in this encounter"
--- OUTSIDE RECORDS SUMMARY | ~2020-04-23 | XMS | Encounter Summary ---
Demographics + + + | Address | [address] | | | [place] [address] | + + + | Home Phone | | + + + | Preferred Language | Unknown | + + + | Marital Status | | + + + | Restorationist Affiliation | 1077 | + + + | Race | Unknown | + + + | Ethnic Group | Unknown | + + + Author + + + | Author | [facility] | | | and [place] | + + + | Organization | [facility] | | | and [...] Team Providers + +------+ + | Care Presetter Operator Name | Role | Phone | + +------+ + PCP | Unavailable | + +------+ + Encounter Details +--------+ + + + + | Date | Type | Department | Care Team | Description | +--------+ + + + + | 08/22/ | Hospital | [facility] | [place] H[place], | | | 1999 - | Encounter | MED [facility] | MD [address] | | | | | [facility] [address] | [address] | | | 08/24/ | | [place], | [place] [address] | | | 1998 | | [place] [address] | [phone] | | | | | [phone] | | | +--------+ + + + [...]
--- OUTSIDE RECORDS SUMMARY | ~2020-04-23 | XMS | Encounter Summary ---
Demographics + + + | Address | [address] | | | [place] [address] | + + + | Home Phone | | + + + | Preferred Language | Unknown | + + + | Marital Status | | + + + | Restoration Affiliation | Unknown | + + + | Race | White | + + + | Ethnic Group | Not or | + + + Author + + + | Author | [facility] | + + + | Organization | [facility] | + + + | Address | Unknown | + + + | Phone | Unavailable | + + + Support + + +---------+ + | Name | Relationship | Address | Phone | + + +---------+ + | Joe Rhodes | ECON | Unknown | | + + +---------+ + Care Team Providers + +------+ + | Care Edgerman Name | Role | Phone | + [...] as of this encounter Progress Notes Interface, Smelter Charger In - 05/27/2005 5:06 AM PDT [id number] 09/15/2004 09/15/2004 [id number] RIGO ROSARIO DATE OF SERVICE: 09/15/2004 SURGEON: Fausto Chang M.D. NEWSPAPER DISTRIBUTOR SUPERVISOR: Franck Ward M.D. RESIDENT: Pratik Parnell M.D. [...]
--- OUTSIDE RECORDS SUMMARY | ~2020-04-23 | XMS | Encounter Summary ---
Demographics + + + | Address | [address] | | | [place] [address] | + + + | Home Phone | | + + + | Preferred Language | Unknown | + + + | Marital Status | | + + + | Scientology Affiliation | 1077 | + + + | Race | Unknown | + + + | Ethnic Group | Unknown | + + + Author + + + | Author | [facility] | | | and [place] | + + + | Organization | [facility] | | | and [place] | [...] Team Providers + +------+ + | Care Commercial Fisherman Name | Role | Phone | + +------+ + PCP | Unavailable | + +------+ + Encounter Details +--------+ + + + + | Date | Type | Department | Care Team | Description | +--------+ + + + + | 08/12/ | Hospital | [facility] | | | | 1996 | Encounter | MED CTR MP INTRA OP | | | | | | [address] | | | | | | [place] | | | | | | [address] | | | | | | [phone] | | | +--------+ + + + [...]
--- OUTSIDE RECORDS SUMMARY | ~2020-04-23 | XMS | Encounter Summary ---
Demographics + + + | Address | [address] | | | [place] [address] | + + + | Home Phone | | + + + | Preferred Language | Unknown | + + + | Marital Status | | + + + | Presybeterian Affiliation | 1077 | + + + | Race | Unknown | + + + | Ethnic Group | Unknown | + + + Author + + + | Author | [facility] | | | and [place] | + + + | Organization | [facility] | | | and [place] [...] Team Providers + +------+ + | Care Qualitative Field Coordinator Name | Role | Phone | + +------+ + PCP | Unavailable | + +------+ + Encounter Details +--------+ + + + + | Date | Type | Department | Care Team | Description | +--------+ + + + + | 11/14/ | Hospital | [facility] | | | | 2011 | Encounter | [facility] | | | | | | CLINICAL LABORATORY | | | | | | [address] | | | | | | [place], [place] | | | | | | [address] | | | | | | [phone] | | | +--------+ + + + [...] At | + + + | CASE: [id number] PATIENT: MARLENE RHODES Surgical Pathology Report | [...] | and entirely submitted in cassette A1. fam:[facility] MICROSCOPIC | | | EXAMINATION: Histologic sections [...]
--- OUTSIDE RECORDS SUMMARY | ~2020-04-23 | XMS | Encounter Summary ---
Demographics + + + | Address | [address] | | | [place] [address] | + + + | Home Phone [...] Team Providers + +------+ + | Care Administrative Secretary Name | Role | Phone | + +------+ + PCP | Unavailable | + +------+ + Encounter Details +--------+ + + + + | Date | Type | Department | Care Team | Description | +--------+ + + + + | 09/01/ | Results | Surgical | Fausto Chang MD | | | 2003 | Only | Dermatology [address] | [address] | | | | | [address] | [address] | | | | | Mailcode:OP06 | [place] [address] | | | | | Outpatient Clinic | [phone] | | | | | [facility], Room [address] | | | | | | [place], [place] | | | | | | [address] | | | | | | [phone] | | | +--------+ + + + [...] | | | | | | [facility] | | | | | | [facility] [address] | | | | | | [place], [address] | | | | | | [place] | | | | | | [address] | | | | | | 09/03/04Rendering [...] [facility] | Mailcode CH[address]D [address] | [place] [address] | | | DERMATOPATHOLOGY | [address] | | | + + + + + documented in this encounter Visit Diagnoses Not on filedocumented in this encounter"
--- OUTSIDE RECORDS SUMMARY | ~2020-04-23 | XMS | Encounter Summary ---
Demographics + + + | Address | [address] | | | [place] [address] | + + + | Home Phone | | + + + | Preferred Language | Unknown | + + + | Marital Status | | + + + | Adventist Affiliation | Unknown | + + + [...] Team Providers + +------+ + | Care Backside Grinder Name | Role | Phone | + [...] as of this encounter Progress Notes Interface, Otr Driver In - 04/04/2005 1:10 AM PDT [id number] 08/26/2004 [id number] RIGO ROSARIO September 15, 2004 Karl Rojas M.D. [address] [place] [id number] Re: Jeannine Rhodes 01-89-53-[address] Rojas, [...]
--- OUTSIDE RECORDS SUMMARY | ~2020-04-23 | XMS | Encounter Summary ---
Demographics + + + | Address | [address] | | | [place] [address] | + + + | Home Phone | | + + + | Preferred Language | Unknown | + + + | Marital Status | | + + + | Hinduism Affiliation | 1077 | + + + | Race | Unknown | + + + | Ethnic Group | Unknown | + + + Author + + + | Author | [facility] | | | and [place] | + + + | Organization | [facility] | | | and [place] [...] Team Providers + +------+ + | Care Content Analyst Name | Role | Phone | + [...] [place] | | | | | | [address] | (Fax) | | | | | [phone] | | | +--------+ + + + [...]
[~2020-04-23 10:52] MED LIST: LEVOTHYROXINE137 MCG PO; METFORMIN HCL1000 MG PO; OZEMPIC1 MG/0.75 SUB-Q
--- OUTSIDE RECORDS SUMMARY | 2020-04-23 10:56 | XMS ---
PreManage Notification: MARLENE SIERRA Security Supervisor White Sugar Events No recent Security Events currently on file CRITERIA MET - [facility] - 2 Visits in 30 Days CARE PROVIDERS There are no care providers on record at this time. Petr has no Care Guidelines for this patient. Onur VISIT COUNT (12 MO.) [address] [facility] TOTAL 2 NOTE: Visits indicate total known visits. ED/C VISIT TRACKING (12 MO.) 04/23/2020 10:53 [facility] [place] TYPE: Emergency COMPLAINT: - SUTURE REMOVAL 04/09/2020 07:57 [facility] [place] TYPE: Emergency COMPLAINT: - FALL, RIGHT KNEE LAC DIAGNOSES: - Allergy status to other drugs, medicaments and biological sub - Type 1 diabetes mellitus without complications - Hypothyroidism, unspecified - Other exterminator termite (current) drug therapy - Encounter for immunization - Laceration without foreign body, right knee, initial encounte - Fall on same level from slipping, tripping and stumbling with INPATIENT VISIT TRACKING (12 MO.) No inpatient visits to display in this time frame [id number]
== END 2020-04-23 11:18 | disposition home or self-care (01) ==
LOC: ED 10:52
DX: Z48.01 Encounter for change or removal of surgical wound dressing (principal)